=== PATIENT | female | born 1965 | race Caucasian/White ===

== ENCOUNTER 2016-06-30 15:59 | Emergency (ER) | payer OTHER ==
[~2016-06-30] VITALS: Ht 165.1 cm; Wt 61.2 kg
[~2016-06-30 15:59] MED LIST: AZITHROMYCIN250 MG ORAL; CYCLOBENZAPRINE10 MG ORAL; IBUPROFEN600 M1 PO; IBUPROFEN600 MG PO; LOMOTIL TABLET1 EAC1 PO; NAPROSYN500 M1 ORAL; NORCO 5-325 TA1 EACH ORAL; PEPCID20 MG ORAL; PHENERGAN6.25 MG/5 ORAL; PROAIR HFA8.5 GM INH; PROMETHAZINE V237 ML ORAL; SERTRALINE HCL100 MG PO; ZITHROMAX250 MG ORAL; ZOFRAN ODT4 MG ORAL; ZOFRAN4 M1 ORAL
[2016-06-30] MEDS ORDERED: Ketorolac 60mg Inj IM ONE (17:00)
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
[2016-06-30] MEDS ORDERED: CYCLOBENZAPRINE10 MG ORAL (17:03)
[2016-06-30] MEDS ORDERED: TYLENOL EXTRA500 MG ORAL (17:03)
[2016-06-30 17:17] VITALS: BP 133/82
[2016-06-30] MEDS ORDERED: PRILOSEC OTC20 MG ORAL (23:23)
== END 2016-06-30 17:18 | disposition home or self-care (01) ==
LOC: EMR 16:35
DX: S16.1XXA Strain of muscle, fascia and tendon at neck level, initial encounter (principal); M62.838 Other muscle spasm; F07.81 Postconcussional syndrome; V43.02XA Car driver injured in collision with other type car in nontraffic accident, initial encounter; Y93.9 Activity, unspecified; Y92.410 Unspecified street and highway as the place of occurrence of the external cause; Z88.0 Allergy status to penicillin; Z88.2 Allergy status to sulfonamides; J45.909 Unspecified asthma, uncomplicated; R42 Dizziness and giddiness
CPT/HCPCS: 99283

== ENCOUNTER 2016-06-30 22:14 | Emergency (ER) | payer OTHER ==
[~2016-06-30] VITALS: Ht 165.1 cm; Wt 61.2 kg
[~2016-06-30 22:14] MED LIST changes: +TYLENOL EXTRA500 MG ORAL
[2016-06-30] MEDS ORDERED: Mylanta II UD 30ml ORAL ONE (22:45)
[2016-06-30] MEDS ORDERED: PRILOSEC OTC20 MG ORAL (23:23)
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
[2016-06-30 23:31] VITALS: BP_SYST 129; BP_SYST 137; BP_DIAS 81; BP_DIAS 82
== END 2016-06-30 23:31 | disposition home or self-care (01) ==
LOC: EMR 23:13
DX: R10.13 Epigastric pain (principal); Z88.0 Allergy status to penicillin; Z88.2 Allergy status to sulfonamides; J45.909 Unspecified asthma, uncomplicated
CPT/HCPCS: 93005; 99283